=== PATIENT | male | born 1980 | race Caucasian/White ===

== ENCOUNTER 2020-07-13 07:01 | Emergency (ER) | payer MEDICAID ==
[~2020-07-13] VITALS: Ht 188 cm; Wt 113.6 kg
[~2020-07-13 07:01] MED LIST: BECL8.7A3 IH; HYDR1TAB PO; IBUP-1984 PO; LEVA15HF4 INH; NEOM28.37 TP; PER5325T PO
[2020-07-13 07:07] VITALS: BP 107/50
[2020-07-13] MEDS ORDERED: CLIN150C2 PO (07:50)
[2020-07-13] MEDS ORDERED: ketorolac tromethamine 15mg/ml inj. IM ONE (07:50)
[2020-07-13] MEDS ORDERED: SULF1TAB49 PO (07:50)
[2020-07-13] MEDS ORDERED: acetaminophen 325mg tablet PO ONE (07:50)
== END 2020-07-13 08:19 | disposition home or self-care (01) ==
LOC: ER 07:01
DX: L03.317 Cellulitis of buttock (principal); L02.31 Cutaneous abscess of buttock; I10 Essential (primary) hypertension; J45.909 Unspecified asthma, uncomplicated; M19.90 Unspecified osteoarthritis, unspecified site; G89.29 Other chronic pain; F41.9 Anxiety disorder, unspecified; F32.9 Major depressive disorder, single episode, unspecified; F12.90 Cannabis use, unspecified, uncomplicated; Z98.890 Other specified postprocedural states; Z56.0 Unemployment, unspecified; Z88.0 Allergy status to penicillin; Z88.1 Allergy status to other antibiotic agents; Z88.8 Allergy status to other drugs, medicaments and biological substances; Z79.2 Long term (current) use of antibiotics; Z79.899 Other long term (current) drug therapy
CPT/HCPCS: 96372; 99283; J1885

== ENCOUNTER 2020-10-21 04:31 | Emergency (ER) | payer MEDICAID, OTHER ==
[~2020-10-21] VITALS: Ht 177.8 cm; Wt 113.0 kg
[2020-10-21] MEDS ORDERED: MIDAZolam 5mg/ml 2ml vial IM ONE ×2 (04:35→05:30)
--- NOTE | 2020-10-21 04:41 | NUR ---
PT SCREAMING AT STAFF, IN RESTRAINTS "THEY'RE TRYING TO KILL ME!" PT GIVEN 5MG VERSED IM.
[2020-10-21 05:02] LABS: BASOPHILS # (AUTO) 0.1 X10'3 (0-0.2); BASOPHILS % (AUTO) 0.7 % (0-1); EOSINOPHILS % (AUTO) 0.2 % (0-6); HEMATOCRIT 46.8 % (42.0-52.0); HEMOGLOBIN 15.9 g/dl (14.0-17.9); LYMPHOCYTES # (AUTO) 2.7 X10'3 (1.1-4.8); LYMPHOCYTES % (AUTO) 25.1 % (21-51); MEAN CORPUSCULAR HGB CONC 33.9 g/dL (33.0-36.5); MEAN CORPUSCULAR VOLUME 88.3 FL (78-98); MONOCYTES # (AUTO) 1.3 X10'3 (0-0.9); MONOCYTES % (AUTO) 12.1 % (2-12); NEUTROPHILS # (AUTO) 6.6 X10'3 (1.8-7.7); NEUTROPHILS % (AUTO) 61.9 % (42-75); PLATELET COUNT 154 X10'3 (140-440); RED CELL DISTRIBUTION WIDTH 13.9 % (11.5-14.5); WHITE BLOOD COUNT 10.7 X10'3 (4.5-11.0)
[2020-10-21 05:17] LABS: ALANINE AMINOTRANSFERASE 117 U/L (12-78); ALBUMIN 4.3 G/DL (3.4-5.0); ALBUMIN/GLOBULIN RATIO 1.1 (1.1-1.5); ALKALINE PHOSPHATASE 85 IU/L (46-116); ANION GAP 19 (8-16); ASPARTATE AMINO TRANSFERASE 69 U/L (10-37); BILIRUBIN,TOTAL 0.9 MG/DL (0.1-1.0); BLOOD UREA NITROGEN 17 MG/DL (7-18); CALCIUM 9.2 MG/DL (8.5-10.1); CHLORIDE 104 MMOL/L (99-107); CREATININE 1.55 MG/DL (0.60-1.10); GLUCOSE 176 MG/DL (70-104); POTASSIUM 3.6 MMOL/L (3.5-5.1); SODIUM 142 MMOL/L (135-145); TOTAL PROTEIN 8.2 G/DL (6.4-8.2); eGFR 51 ML/MIN
[2020-10-21] MEDS ORDERED: MIDAZolam 5mg/ml 2ml vial IV ONE (05:25)
--- NOTE | 2020-10-21 07:12 | NUR ---
spouse iam at bedside.
--- NOTE | 2020-10-21 08:06 | NUR ---
BLE restraints dc'd,patient reports he will "behave himself".
--- NOTE | 2020-10-21 08:50 | NUR ---
one wrist restraint dc'ilene.patient cooperating.
--- NOTE | 2020-10-21 09:20 | NUR ---
Given patient a sandwich and pitcher of iced water.
--- NOTE | 2020-10-21 09:32 | NUR ---
patient up to the bathroom.able to redirect,pacing in the room.No benzo per Dr. Mooney,plan to dc patient.
--- NOTE | 2020-10-21 09:47 | NUR ---
patient unable to give urine for sample at this time,Dr. Mooney aware.
[2020-10-21 09:48] VITALS: BP 145/93
== END 2020-10-21 09:51 | disposition home or self-care (01) ==
LOC: ER 04:33
DX: S60.512A Abrasion of left hand, initial encounter (principal); R45.1 Restlessness and agitation; N17.9 Acute kidney failure, unspecified; I10 Essential (primary) hypertension; J45.909 Unspecified asthma, uncomplicated; M19.90 Unspecified osteoarthritis, unspecified site; G89.29 Other chronic pain; F41.9 Anxiety disorder, unspecified; F32.9 Major depressive disorder, single episode, unspecified; F12.90 Cannabis use, unspecified, uncomplicated; Z98.890 Other specified postprocedural states; Z88.0 Allergy status to penicillin; Z88.5 Allergy status to narcotic agent; Z88.8 Allergy status to other drugs, medicaments and biological substances; Z79.2 Long term (current) use of antibiotics; Z79.899 Other long term (current) drug therapy; V99.XXXA Unspecified transport accident, initial encounter; Y93.89 Activity, other specified; Y92.89 Other specified places as the place of occurrence of the external cause; Y99.8 Other external cause status
CPT/HCPCS: 36415; 80053; 85025; 93005; 96372; 99285; J2250

== ENCOUNTER 2020-10-27 16:58 | Emergency (ER) | payer OTHER ==
[~2020-10-27] VITALS: Ht 188 cm; Wt 110.0 kg
[2020-10-27 17:39] VITALS: BP 143/74
--- NOTE | 2020-10-27 22:01 | NUR ---
PT PACING IN ROOM APPEARING TO BE UNSETTLED, SLOW TO RESPOND
== END 2020-10-28 00:35 | disposition left against medical advice (07) ==
LOC: ER 16:59
DX: R42 Dizziness and giddiness (principal); Z53.21 Procedure and treatment not carried out due to patient leaving prior to being seen by health care provider
CPT/HCPCS: 93005

== ENCOUNTER 2024-10-02 12:42 | Emergency (ER) | payer MEDICAID ==
[~2024-10-02] VITALS: Ht 188 cm; Wt 140.9 kg
[2024-10-02 12:53] VITALS: BP 150/93; PULSE 100; RESP 18; O2SAT 97
--- NOTE | 2024-10-02 13:41 | Physician Documentation ---
History of Present Illness ~ Chief Complaint: Bite-insect Stated Complaint: ABSCESS Time Seen by MD: 13:07 Primary Medical Doctor: DR CALDERON [facility] This is a 43-year-old male who presents with painful ulceration to his penis and foreskin present for the past three days, patient reports no new sexual partners. Patient additionally reports area of pain and swelling to his left antecubital after utilizing injection drugs in the area. Patient reports no fevers or other acute symptoms or concerns. Tetanus within 5 years?: Yes Medication Reconciliation Allergies: Coded Allergies: Penicillins (Unverified Allergy, Intermediate, 12/08/09) amoxicillin (Verified Allergy, Unknown, 10/21/20) clonazepam (Unverified Allergy, Unknown, 10/21/20) clonidine (Unverified Allergy, Unknown, 10/21/20) Uncoded Allergies: ALL CILLINS (Allergy, Intermediate, 12/08/09) Scheduled Beclomethasone Diprop. 40mcg inhaler (Qvar 40mcg inhaler), 2 PUFF IH BID, (Reported) Doxycycline Hyclate (Doxycycline Hyclate), 1 CAP PO Q12H Ibuprofen* (Motrin*), 400 MG PO Q8H Neomy Sulf/Bacitrac Zn/Poly (Neosporin Ointment), 30 GM TP BID Oxycodone Hcl/Acetaminophen 5/325 MG* (Percocet 5/325 MG*), 2 TAB PO Q6H, (Reported) Scheduled PRN Hydrocodone/Acetaminophen (Vicodin 5-500 Tablet), 1 TAB PO BID PRN, (Reported) Levalbuterol Tartrate* (Xopenex Inhaler*), 2 PUFFS INH Q4H PRN, (Reported) Past Medical History Past Medical History: Hypertension, Asthma, Arthritis, Chronic Pain, Chronic Back Pain, Anxiety, Depression Past Surgical History: orthopedic surgeries Alcohol Use: None Drug Use: marijuana Lives with: S/O Lives In: Home Occupation: unemployed Review of Systems ROS Ulceration to penis and abscess to left arm as stated above in the HPI, otherwise all systems are reviewed and negative. Physical Exam Vital Signs: Temperature: 96.8, Source: Temporal, Heart Rate: 100, Respiratory Rate: 18, BP: 150/93, Pulse Oximetry: 97, Weight: 140.910 Oxygen Flow Rate: 0 Physical Exam VITALS: Reviewed and as above. GENERAL: Alert, nontoxic appearing, no apparent distress. RESPIRATORY: No increased work of breathing, no respiratory distress, speaking in full clear sentences : Ulceration with purulence/exudates to base of glans penis, 1 cm circular painful ulceration with purulence/exudates to lateral aspect of shaft of penis, inguinal lymphadenopathy SKIN: Erythematous fluctuant mass to left antecubital Procedures I & D Procedure : Site: Left antecubital Anesthesia: Lidocaine w/ Epi Volume Anesthetic (mls): 5 Blade Size: 11 Prep/Supplies: drapes applied, dressing applied Incision: mass incised, pus drained, blood drained Tolerated Procedure Well?: yes, no complications Progress Results/Orders Results/Orders Orders - VASILE HOWELL Laceration/I&D Tray Set Up (10/02/24 13:47) Wound Care Orders (10/02/24 13:47) RPR (10/02/24 13:59) Completed Orders - VASILE HOWELL Tetanus/Pertuss/Diph Acell/Pf (Boostrix (10/02/24 13:50) Hiv Ab 1&2 Rapid Scn (10/02/24 13:59) Ceftriaxone Im Kit W/Lidocaine (Rocephin (10/02/24 14:00) Doxycycline 100mg Capsule (Vibramycin 10 (10/02/24 13:59) Ibuprofen Tablet (Motrin Tablet) (10/02/24 14:05) Lidocaine 1% W/Epi 1:100,000 (Xylocaine (10/02/24 13:50) Ceftriaxone 500 Im W/Lidocaine (Rocephin (10/02/24 14:25) Medications Received in ER Medications (Trade) Dose Ordered Sig/María Route PRN Reason Start Time Stop Time Status Last Admin Dose Admin (Rocephin 500MG IM kit (w/1% LIDOcaine)) 500 mg ONCE ONCE IM 10/02/24 14:25 10/02/24 14:26 DC 10/02/24 14:37 500 MG Vital Signs 10/02/24 10/02/24 12:53 16:18 Temp 96.8 96.8 Pulse 100 Resp 18 B/P (MAP) 150/93 Pulse Ox 97 O2 Flow Rate 0 Laboratory Tests Test 10/02/24 15:09 HIV (1&2) Antibody Non-reactive Medical Decision Making Findings This 43-year-old male presented with ulcerative lesions to his penis, given lesions were painful and exudative they were consistent with chancroid patient did not have inguinal lymphadenopathy and did not report fever chills or other systemic symptoms which is reassuring. Patient did also report a painful mass to his left antecubital present for three days and increasing in size, patient reports pain and swelling to the area began after injecting IV drugs at the site. Given patient risk factors for other STIs he has been treated for chancroid, gonorrhea, and chlamydia, testing for syphilis and HIV. Doxycycline used to cover for both STIs and abscess. History is reassuring as patient reports no fever, chills, or other system thing symptoms. There is no evidence of rapidly progressing symptoms, crepitus, pain out of proportion, pain away from site or other signs/symptoms concerning for necrotizing fasciitis, myositis, or other deep tissue infection. I considered other high-risk diagnoses such as acute osteomyelitis, deep space abscess, septic joint, foreign body, or deep vein thrombosis or septic phlebitis. Abscess was incised and drained without complication. Physical exam is otherwise benign, patient is non-toxic and well-appearing, afebrile, and hemodynamically stable, patient is appropriate for outpatient follow up. Patient given strict return precautions including rapidly progressing symptoms, pain out of proportion/severe pain, mucosal involvement, and/or fever > 100.4. Patient verbalized understanding of follow up instructions, care instructions, and return to care precautions. Differential Dx:Considerations: Include: Anaphylaxis, Cellulitis, Insect envenomation, Punture wound, Retained foreign body, Urticaria, Other (HIV, syphilis, balanitis, tinea cruris gonorrhea, chlamydia, sepsis, necrotizing fasc iitis) Departure Time of Disposition: 15:58 Disposition: 01 HOME / SELF CARE / HOMELESS Impression: Primary Impression: Chancroid of penis Additional Impression: Abscess Condition: Improved Discharge Instructions: Abscess, Care After, Preventing Sexually Transmitted Infections, Adult Additional Instructions: Please take the antibiotics as prescribed, use warm compresses and clean the abscess area two to 3 times a day, otherwise keep the area clean dry and covered. Please follow up with your primary care provider or the [facility] in the next few days recheck. Please return to the emergency department for any new or worsening concerning symptoms. Your partner should be treated for the same STIs as you have been treated for, you may call the hospital for your results tomorrow. Avoid sexual activity until you have been retested for STIs. Referrals: NO PRIMARY CARE PROVIDER (PCP) Prescriptions Doxycycline Hyclate (Doxycycline Hyclate) 100 Mg Capsule 1 CAP PO Q12H for 7 Days, #14 CAP Prov: VASILE HOWELL 10/02/24 Education Educated: Patient Educated regarding: diagnosis, treatment, prognosis, need for follow up Signature Scribe Signature: No scribe Attestation: The note accurately reflects work and decisions made by me.MELODY Walter 10/02/24 22:22 VASILE HOWELL Oct 02, 2024 13:41
[2024-10-02] MEDS: CefTRIAXone 1000mg IM Kit (w/lidocaine diluent) IM ONE (14:00)
[2024-10-02] MEDS: LIDOcaine 1% W/epiNEPHrine 1:100,000 20ml vial IJ ONE (14:35)
[2024-10-02] MEDS: TETanus/Pertussis (Acell)/Diphther VAC/PF (Tdap-Adult) 0.5ml syringe IMVAC ONE (14:37)
[2024-10-02] MEDS: DOXYCYCLINE 100MG CAPSULE PO STA (14:37)
[2024-10-02] MEDS: ibuprofen tablet 400 MG TABLET PO ONE (14:37)
[2024-10-02] MEDS: CefTRIAXone 500MG IM Kit w/LIDOcaine IM ONE (14:37)
[2024-10-02] MEDS ORDERED: DOXY-225 PO (15:58)
[2024-10-02 16:18] VITALS: TEMP 96.8
[2024-10-02 16:29] LABS: HIV ANTIBODY 1&2 RAPID NON-REACTIVE (Neg)
== END 2024-10-02 16:20 | disposition home or self-care (01) ==
LOC: ER 12:43
DX: N48.21 Abscess of corpus cavernosum and penis (principal); A57 Chancroid; I10 Essential (primary) hypertension; J45.909 Unspecified asthma, uncomplicated; M19.90 Unspecified osteoarthritis, unspecified site; F41.9 Anxiety disorder, unspecified; F32.A Depression, unspecified; F12.90 Cannabis use, unspecified, uncomplicated; Z88.0 Allergy status to penicillin
CPT/HCPCS: 10060; 36415; 86592; 86703; 90471; 90715; 96372; 99284; J0696; A6449

== ENCOUNTER 2024-11-09 03:19 | Emergency (ER) | payer MEDICAID ==
[~2024-11-09] VITALS: Ht 188 cm; Wt 135.8 kg
--- NOTE | 2024-11-09 07:09 | Physician Documentation ---
History of Present Illness General Chief Complaint: Abdominal Pain Stated Complaint: BOWEL OBSTRUCTION Time Seen by MD: 07:03 Primary Medical Doctor: DR CALDERON Mode of Arrival: POV History of Present Illness Initial Comments The patient is a 44-year-old man with a history of psychiatric illness and obesity who presents with epigastric pain for a few days but that became severe beginning yesterday. He was taking Wegovy in his last injection was a little over one week ago but he stopped it due to side effects (vomiting). He feels nauseated. No diarrhea. Medication Reconciliation Allergies: Coded Allergies: Penicillins (Unverified Allergy, Intermediate, 12/08/09) amoxicillin (Verified Allergy, Unknown, 10/21/20) clonazepam (Unverified Allergy, Unknown, 10/21/20) clonidine (Unverified Allergy, Unknown, 10/21/20) Uncoded Allergies: ALL CILLINS (Allergy, Intermediate, 12/08/09) Scheduled Beclomethasone Diprop. 40mcg inhaler (Qvar 40mcg inhaler), 2 PUFF IH BID, (Reported) Ibuprofen* (Motrin*), 400 MG PO Q8H Neomy Sulf/Bacitrac Zn/Poly (Neosporin Ointment), 30 GM TP BID Oxycodone Hcl/Acetaminophen 5/325 MG* (Percocet 5/325 MG*), 2 TAB PO Q6H, (Reported) Scheduled PRN Hydrocodone/Acetaminophen (Vicodin 5-500 Tablet), 1 TAB PO BID PRN, (Reported) Levalbuterol Tartrate* (Xopenex Inhaler*), 2 PUFFS INH Q4H PRN, (Reported) Past Medical History Past Medical History: Hypertension, Asthma, Arthritis, Chronic Pain, Chronic Back Pain, Anxiety, Depression Past Surgical History: orthopedic surgeries Smoking: Cigarettes, Less than 1 pack/day Alcohol Use: None Drug Use: marijuana Lives with: S/O Lives In: Home Occupation: unemployed Review of Systems ROS Constitutional: Denies chills, fatigue, fever, weight gain or weight loss. HEENT: Denies hearing loss, sinus pressure or visual changes. Respiratory: Denies cough, shortness of breath or wheezing. Cardiovascular: Denies chest pain, pain while walking (claudication), edema or palpitations. Gastrointestinal: Abdominal pain, epigastric in nausea Genitourinary: Denies painful urination (dysuria), excessive amount of urine (polyuria) or urinary frequency. Metabolic/Endocrine: Denies cold intolerance, heat intolerance, excessive thirst (polydipsia) or excessive hunger (polyphagia). Neurological: Denies dizziness, extremity numbness, extremity weakness, headaches, seizures or tremors. Psychiatric: Denies anxiety or depression. Integumentary: Denies breast discharge, breast lump, hives, mole change(s), rash or skin lesion. Musculoskeletal: Denies back pain, joint pain, joint swelling or neck pain. Hematologic: Denies easily bleeding, easily bruises, lymphedema or issues with blood clots. Immunologic: Denies food allergies or seasonal allergies. Physical Exam Physical Exam Vital Signs: Temperature: 97.7, Source: Oral, Heart Rate: 76, Respiratory Rate: 18, BP: 138/81, Pulse Oximetry: 99, Weight: 135.800 Oxygen Flow Rate: 0 Physical Exam Physical Exam Vitals and nursing note reviewed. Constitutional: General: Patient is awake, alert, oriented x 4 in no acute distress and well appearing. Speech is clear and lucid. Appearance: Normal appearance. Patient is not ill-appearing, toxic-appearing or diaphoretic. HENT: Head: Normocephalic and atraumatic. Mouth/Throat: Mouth: Mucous membranes are moist. Pharynx: Oropharynx is clear. Eyes: General: No scleral icterus. Extraocular Movements: Extraocular movements intact. Pupils: Pupils are equal, round, and reactive to light. Neck: Supple, no Kernig or Brudzinski sign. Cardiovascular: Rate and Rhythm: Normal rate and regular rhythm. Heart sounds: No murmur heard. Pulmonary: Effort: No respiratory distress. Breath sounds: No wheezing, rhonchi or rales. Abdominal: General: There is no distension. Palpations: There is no fluid wave, hepatomegaly or mass. Tenderness: There is no abdominal tenderness. There is no guarding. Musculoskeletal: General: No swelling or deformity. Skin: Coloration: Skin is not jaundiced. Findings: No erythema or rash. Neurological: Mental Status: Patient is alert. Progress Results/Orders Results/Orders Orders - SAM INFANTE MD LA (11/09/24 07:03) MG (11/09/24 07:03) Normal Saline 1000ml (0.9% Sodium Chlori (11/09/24 07:10) Cbc/Diff (11/09/24 07:18) Completed Orders - SAM INFANTE MD Ondansetron Inj. (Zofran 4mg/2ml Vial) (11/09/24 07:10) Vital Signs 11/09/24 11/09/24 11/09/24 11/09/24 03:30 06:02 06:04 06:26 Temp 97.7 97.7 Pulse 84 74 76 Resp 20 16 18 B/P (MAP) 144/101 151/95 (113) 138/81 (100) Pulse Ox 98 99 99 O2 Flow Rate 0 0 11/09/24 07:16 Temp 97.7 Pulse 70 Resp 16 B/P (MAP) 145/85 (105) Pulse Ox 98 O2 Flow Rate 0 Laboratory Tests Test 11/09/24 06:23 11/09/24 06:30 CBC Comment Urine Specimen Description Non-specified Urine Color Yellow Urine Clarity Slightly cloudy Urine pH 6.5 Urine Specific [place] 1.020 Urine Protein Negative Urine Glucose (UA) Negative Urine Ketones Negative Urine Occult Blood Negative Urine Nitrite Negative Urine Bilirubin Negative Urine Urobilinogen 0.2 Urine Leukocyte Esterase Negative Urine RBC None seen Urine WBC 0-4 Urine Squamous Epithelial Cells None seen Urine Amorphous Urates 3+ Urine Bacteria None seen Urine Mucus None seen Urine Culture Indicated Not ind Volume Urine Centrifuged 10 ml Urine Comment Medical Decision Making Findings This patient is choosing to leave AGAINST MEDICAL ADVICE. I personally explained to him that choosing to do so may result in worsening of symptoms, permanent disability, or even . I discussed at great length that without further evaluation and monitoring there may be unforeseen circumstances and/or deterioration causing permanent bodily harm or as a result of this choice. Patient is alert, oriented x 4, and shows the mental capacity to state back to me in their own words the risks involved with leaving against medical advice at this time, demonstrating they are making clear decisions regarding their healthcare at this time. Patient continues to wish to leave AGAINST MEDICAL ADVICE. In light of this decision to leave AGAINST MEDICAL ADVICE, patient has been instructed to obtain close follow-up with their primary care physician and they state that they are aware of the importance of obtaining following up as instructed. Patient has been advised that they should return to the Emergency Department immediately if they change their mind at any time and would like to complete the rest of their evaluation, or if the condition begins to change or worsen in any way. Departure Disposition: 07 LEFT AGAINST MEDICAL ADVICE Impression: Primary Impression: Left against medical advice Condition: Fair Additional Instructions: This patient is choosing to leave AGAINST MEDICAL ADVICE. I personally explained to him that choosing to do so may result in worsening of symptoms, permanent disability, or even . I discussed at great length that without further evaluation and monitoring there may be unforeseen circumstances and/or deterioration causing permanent bodily harm or as a result of this choice. Patient is alert, oriented x 4, and shows the mental capacity to state back to me in their own words the risks involved with leaving against medical advice at this time, demonstrating they are making clear decisions regarding their healthcare at this time. Patient continues to wish to leave AGAINST MEDICAL ADVICE. In light of this decision to leave AGAINST MEDICAL ADVICE, patient has been instructed to obtain close follow-up with their primary care physician and they state that they are aware of the importance of obtaining following up as instructed. Patient has been advised that they should return to the Emergency Department immediately if they change their mind at any time and would like to complete the rest of their evaluation, or if the condition begins to change or worsen in any way. Referrals: NO PRIMARY CARE PROVIDER (PCP) Signature Scribe Signature: . Attestation: SAM LEE MD Nov 09, 2024 07:09
[2024-11-09] MEDS ORDERED: normal saline 1000ml 1,000 ML IV ONE (07:10)
[2024-11-09] MEDS ORDERED: ondansetron/PF 4mg/2ml inj IV ONE (07:10)
[2024-11-09 07:16] VITALS: BP 145/85; PULSE 70; RESP 16; TEMP 97.7; O2SAT 98
[2024-11-09 07:30] LABS: LEUKOCYTE ESTERASE ,URINE NEGATIVE (Neg); NITRITES, URINE NEGATIVE (Neg); OCCULT BLOOD,URINE NEGATIVE (Neg)
[2024-11-09 07:35] LABS: UA COLLECTION TYPE NON-SPECIFIED
[2024-11-09 07:37] LABS: AMORPHOUS URATES 3+; MUCUS STRANDS NONE SEEN /LPF (Neg); SQUAMOUS EPITHELIAL CELL,UR NONE SEEN /LPF (FEW)
[2024-11-09 07:54] LABS: MEAN PLATELET VOLUME 10.1 FL (7.4-10.4); RED CELL DISTRIBUTION WIDTH 14.1 % (11.5-14.5)
[2024-11-09 08:03] LABS: CREATININE 0.98 MG/DL (0.60-1.10); TOTAL CARBON DIOXIDE 29.5 MMOL/L (24-32); eCRCL 114 ML/MIN; eGFR 84 ML/MIN
== END 2024-11-09 07:45 | disposition left against medical advice (07) ==
LOC: ER 03:20
DX: R10.13 Epigastric pain (principal); I10 Essential (primary) hypertension; J45.909 Unspecified asthma, uncomplicated; F41.9 Anxiety disorder, unspecified; F32.A Depression, unspecified; M19.90 Unspecified osteoarthritis, unspecified site; F17.210 Nicotine dependence, cigarettes, uncomplicated; F12.90 Cannabis use, unspecified, uncomplicated; Z88.0 Allergy status to penicillin
CPT/HCPCS: 36415; 80053; 81001; 83605; 83690; 83735; 85025; 99283; J7030